=== PATIENT | male | born 1950 | race Two or more races ===

== ENCOUNTER 2024-02-27 20:44 | Emergency (ER) | payer MEDICAID ==
[~2024-02-27] VITALS: Ht 165.1 cm; Wt 74.8 kg
[2024-02-27] MEDS ORDERED: AMOX-430 PO (22:17)
[2024-02-27] MEDS ORDERED: AMOX/CLAVULANATE 875 MG TABLET ONE (22:23)
[2024-02-27] MEDS: AMOX/CLAVULANATE 875 MG TABLET PO ONE (22:27)
[2024-02-27 22:30] VITALS: BP 155/76; TEMP 98.3; O2SAT 99
== END 2024-02-27 22:33 | disposition home or self-care (01) ==
LOC: ER 20:47
DX: K04.7 Periapical abscess without sinus (principal); I10 Essential (primary) hypertension; Z85.46 Personal history of malignant neoplasm of prostate

== ENCOUNTER 2024-03-05 14:52 | Inpatient (IN) | payer MEDICAID ==
[~2024-03-05] VITALS: Ht 188 cm; Wt 78.0 kg
[~2024-03-05 14:52] MED LIST: AMOX-430 PO
[2024-03-05] MEDS ORDERED: CEFTRIAXONE 1GM BAG (ER ONLY) 50 ML IV ONE (15:28)
[2024-03-05] MEDS ORDERED: ACETAMINOPHEN ES 500 MG TABLET ONE (15:28)
[2024-03-05] MEDS ORDERED: AZITHROMYCIN 500 MG VIAL ONE (15:28)
[2024-03-05 15:30] LABS: BASOPHILS % (AUTO) 0.3 % (0.0-2.0); EOSINOPHILS % (AUTO) 0.2 % (0.0-6.0); HEMATOCRIT 23 % (39-51); HEMOGLOBIN 7.8 g/dL (13.5-17.5); LYMPHOCYTES # (AUTO) 0.4 K/uL (0.8-4.8); LYMPHOCYTES % (AUTO) 7.6 % (20.0-44.0); MEAN CORPUSCULAR HEMOGLOBIN 30 PG (26.0-33.0); MEAN CORPUSCULAR HGB CONC 33 g/dl (31.0-36.0); MEAN CORPUSCULAR VOLUME 88 fL (80-96); MONOCYTES # (AUTO) 0.5 K/uL (0.1-1.30); MONOCYTES % (AUTO) 10.2 % (2.0-12.0); NEUTROPHILS # (AUTO) 4.4 K/uL (1.8-8.9); NEUTROPHILS % (AUTO) 81.7 % (43.0-81.0); PLATELET COUNT (AUTO) 167 K/uL (150-450); RED BLOOD CELL COUNT(AUTO) 2.63 MIL/uL (4.5-6.0); RED CELL DISTRIBUTION WIDTH 18.1 % (11.5-15.0); WHITE BLOOD COUNT (AUTO) 5.4 K/uL (4.3-11.0)
[2024-03-05] MEDS: IV NS 0.9% 1,000 ML BAG IV ONE (15:47)
[2024-03-05 15:48] LABS: CALCIUM, SERUM 8.4 mg/dL (8.5-10.1); CARBON DIOXIDE 27 mmol/L (21-32); CHLORIDE 102 mmol/L (98-107); CREATININE 1.6 mg/dL (0.6-1.3); GLUCOSE 107 mg/dL (74-106); POTASSIUM 3.3 mmol/L (3.5-5.1); SODIUM SERUM 136 mmol/L (136-145); UREA NITROGEN, BLOOD 19 mg/dL (7-18)
[2024-03-05] MEDS: CEFTRIAXONE 1GM BAG (ER ONLY) 50 ML IV ONE (15:48)
[2024-03-05] MEDS: AZITHROMYCIN 500 MG in IV D5W 250 ML IV ONE (15:49)
[2024-03-05] MEDS: ACETAMINOPHEN ES 500 MG TABLET PO ONE (15:49)
[2024-03-05 15:53] LABS: ALANINE AMINOTRANSFERASE 19 U/L (12-78); ALKALINE PHOSPHATASE 53 U/L (46-116); ASPARTATE AMINOTRANSFERASE 17 U/L (15-37); BILIRUBIN,DIRECT 0.1 mg/dL (0.0-0.2); BILIRUBIN,TOTAL 0.4 mg/dL (0.2-1.0); PROTHROMBIN TIME 12.6 SECS (9.2-11.1); TOTAL PROTEIN, SERUM 6.4 g/dL (6.4-8.2)
[2024-03-05 15:54] LABS: INR 1.23 (0.91-1.10); PARTIAL THROMBOPLASTIN TIME 34.1 SEC (24.3-34.3)
[2024-03-05 15:56] LABS: LACTIC ACID 1.2 mmol/L (0.4-2.0)
[2024-03-05] MEDS ORDERED: FOLI0.4T6 PO (16:42)
[2024-03-05] MEDS ORDERED: RIVA15TA PO (16:42)
[2024-03-05] MEDS ORDERED: OXYB15TA19 PO (16:42)
[2024-03-05] MEDS ORDERED: IBUP-1957 PO (16:42)
[2024-03-05] MEDS ORDERED: FERR325T24 PO (16:42)
[2024-03-05] MEDS ORDERED: CARV3.122 PO (16:42)
[2024-03-05] MEDS ORDERED: FURO20TA4 PO (16:42)
[2024-03-05] MEDS ORDERED: TAMS-12 PO (16:42)
[2024-03-05 17:18] LABS: APPEARANCE,URINE Clear (CLEAR); BILIRUBIN,URINE Negative (NEGATIVE); BLOOD, URINE Negative Ery/uL (NEGATIVE); COLOR,URINE YELLOW (YELLOW); KETONES,URINE Trace mg/dL (NEGATIVE); LEUKOCYTE ESTERASE ,URINE Negative (NEGATIVE); NITRITE, URINE Negative (NEGATIVE); PH,URINE 5.5 (5.0-8.0); UGLUCOSE Negative (NEGATIVE); UROBILINOGEN,URINE 0.2 EU/dL (0.2)
[2024-03-05 17:20] LABS: PROTEIN,URINE NEGATIVE (NEGATIVE)
[2024-03-05] MEDS ORDERED: ALBUTEROL SULFATE 8 GM HFA.AER.AD IH PRN (18:00)
[2024-03-05] MEDS ORDERED: ACETAMINOPHEN 650 MG/20.3 ML UDC PO PRN (18:00)
[2024-03-05] MEDS ORDERED: IBUPROFEN 400 MG TABLET PO PRN (18:30)
[2024-03-05] MEDS: dexaMETHasone SOD PHOSPHATE 6 MG in IV D5W 50 ML IV SCH (18:38)
[2024-03-05] MEDS ORDERED: HEPARIN SODIUM, PORCINE 5000 UNITS/1 ML VIAL SQ SCH (21:00)
[2024-03-06 08:00] VITALS: BP 149/67; TEMP 98.4; O2SAT 91
[2024-03-06] MEDS: CARVEDILOL 3.125 MG TABLET PO SCH (08:08)
[2024-03-06] MEDS: FOLIC ACID 1 MG TABLET PO SCH (08:57)
[2024-03-06] MEDS: OXYBUTYNIN CHLORIDE ER 5 MG TAB PO SCH (08:57)
[2024-03-06] MEDS: TAMSULOSIN 0.4 MG CAP.SR.24H PO SCH (08:57)
[2024-03-06] MEDS: FERROUS SULFATE (325 MG) 325 MG/TAB TABLET PO SCH (08:58)
[2024-03-06] MEDS: RIVAROXABAN 15 MG TABLET PO SCH (08:59)
[2024-03-06 12:00] VITALS: BP 146/64; TEMP 98.1; O2SAT 94
[2024-03-06 13:44] LABS: CALCIUM, SERUM 8.8 mg/dL (8.5-10.1); CREATININE 1.3 mg/dL (0.6-1.3); POTASSIUM 3.4 mmol/L (3.5-5.1)
[2024-03-06 13:58] LABS: BASOPHILS % (AUTO) 0.1 % (0.0-2.0); HEMATOCRIT 21 % (39-51); HEMOGLOBIN 7.1 g/dL (13.5-17.5); LYMPHOCYTES # (AUTO) 0.6 K/uL (0.8-4.8); LYMPHOCYTES % (AUTO) 16.5 % (20.0-44.0); MEAN CORPUSCULAR HEMOGLOBIN 31 PG (26.0-33.0); MEAN CORPUSCULAR HGB CONC 34 g/dl (31.0-36.0); MEAN CORPUSCULAR VOLUME 89 fL (80-96); MONOCYTES # (AUTO) 0.6 K/uL (0.1-1.30); MONOCYTES % (AUTO) 14.6 % (2.0-12.0); NEUTROPHILS # (AUTO) 2.7 K/uL (1.8-8.9); NEUTROPHILS % (AUTO) 68.8 % (43.0-81.0); PLATELET COUNT (AUTO) 147 K/uL (150-450); RED BLOOD CELL COUNT(AUTO) 2.34 MIL/uL (4.5-6.0); RED CELL DISTRIBUTION WIDTH 18.6 % (11.5-15.0); WHITE BLOOD COUNT (AUTO) 3.9 K/uL (4.3-11.0)
[2024-03-06] MEDS: AZITHROMYCIN 500 MG in IV D5W 250 ML IV SCH (14:32)
[2024-03-06] MEDS: CEFTRIAXONE 1 G in IV D5W 50 ML IV SCH (15:41)
[2024-03-06 16:00] VITALS: BP 128/60; TEMP 98.6; O2SAT 96
[2024-03-06] MEDS: REMDESIVIR (CHARGED) 200 MG, *LOADING DOSE 1 EA in IV NS 0.9% 210 ML IV ONE (18:05)
[2024-03-06 20:00] VITALS: BP 128/61; TEMP 99.1; O2SAT 97
[2024-03-07] VITALS (7 sets, daily range): BP systolic 136–155; BP diastolic 57–71; TEMP 97.7–98.7; O2SAT 93–100
[2024-03-07] MEDS: IV NS 0.9% 250 ML IV PRN (01:25)
[2024-03-07 07:19] LABS: BASOPHILS % (AUTO) 0.4 % (0.0-2.0); EOSINOPHILS % (AUTO) 0.5 % (0.0-6.0); HEMATOCRIT 22 % (39-51); HEMOGLOBIN 7.3 g/dL (13.5-17.5); LYMPHOCYTES # (AUTO) 1.3 K/uL (0.8-4.8); LYMPHOCYTES % (AUTO) 31.2 % (20.0-44.0); MEAN CORPUSCULAR HEMOGLOBIN 30 PG (26.0-33.0); MEAN CORPUSCULAR HGB CONC 33 g/dl (31.0-36.0); MEAN CORPUSCULAR VOLUME 90 fL (80-96); MONOCYTES # (AUTO) 0.4 K/uL (0.1-1.30); MONOCYTES % (AUTO) 10.2 % (2.0-12.0); NEUTROPHILS # (AUTO) 2.4 K/uL (1.8-8.9); NEUTROPHILS % (AUTO) 57.7 % (43.0-81.0); PLATELET COUNT (AUTO) 170 K/uL (150-450); RED BLOOD CELL COUNT(AUTO) 2.46 MIL/uL (4.5-6.0); RED CELL DISTRIBUTION WIDTH 18.4 % (11.5-15.0); WHITE BLOOD COUNT (AUTO) 4.1 K/uL (4.3-11.0)
[2024-03-07 07:45] LABS: CALCIUM, SERUM 8.2 mg/dL (8.5-10.1); CARBON DIOXIDE 25 mmol/L (21-32); CHLORIDE 106 mmol/L (98-107); CREATININE 1.4 mg/dL (0.6-1.3); GLUCOSE 92 mg/dL (74-106); POTASSIUM 3.2 mmol/L (3.5-5.1); SODIUM SERUM 141 mmol/L (136-145); UREA NITROGEN, BLOOD 26 mg/dL (7-18)
[2024-03-07 08:15] LABS: LACTIC ACID 1.2 mmol/L (0.4-2.0)
[2024-03-07] MEDS: POTASSIUM CHLORIDE 20 MEQ TAB.PRT.SR PO SCH (10:52)
[2024-03-07 16:07] LABS: OCCULT BLOOD STOOL POSITIVE (NEGATIVE)
[2024-03-07] MEDS: REMDESIVIR (CHARGED) 100 MG in IV NS 0.9% 230 ML IV SCH (16:22)
[2024-03-08] VITALS: BP 141/62; TEMP 98.6; O2SAT 93
[2024-03-08 04:00] VITALS: BP 138/62; TEMP 98.1; O2SAT 93
[2024-03-08 07:50] LABS: ALBUMIN 2.2 g/dL (3.4-5.0); BILIRUBIN,DIRECT 0.1 mg/dL (0.0-0.2); BILIRUBIN,TOTAL 0.2 mg/dL (0.2-1.0); TOTAL PROTEIN, SERUM 5.2 g/dL (6.4-8.2)
[2024-03-08 08:00] VITALS: BP 135/50; TEMP 98.8; O2SAT 96
[2024-03-08 08:00] LABS: ALBUMIN 2.2 g/dL (3.4-5.0); BILIRUBIN,TOTAL 0.2 mg/dL (0.2-1.0); CREATININE 1.2 mg/dL (0.6-1.3); MAGNESIUM 1.9 mg/dL (1.8-2.4); PHOSPHORUS 2.2 mg/dL (2.5-4.9); POTASSIUM 3.6 mmol/L (3.5-5.1); TOTAL PROTEIN, SERUM 5.2 g/dL (6.4-8.2)
[2024-03-08 08:57] LABS: INR 1.29 (0.91-1.10); PARTIAL THROMBOPLASTIN TIME 39.1 SEC (24.3-34.3); PROTHROMBIN TIME 13.4 SECS (9.2-11.1)
[2024-03-08 12:00] VITALS: BP 139/61; TEMP 98.1; O2SAT 99
[2024-03-08 16:00] VITALS: BP 144/63; TEMP 98.4; O2SAT 97
[2024-03-08] MEDS: AZITHROMYCIN 250 MG TABLET PO SCH (16:23)
[2024-03-08] MEDS: K PHOS NEUTRAL 250 MG TABLET PO ONE (16:23)
[2024-03-08 20:00] VITALS: BP 151/70; TEMP 99.1; O2SAT 97
[2024-03-09] VITALS (9 sets, daily range): BP systolic 137–155; BP diastolic 61–70; TEMP 97.7–98.8; O2SAT 94–99
[2024-03-09 07:01] LABS: CALCIUM, SERUM 7.5 mg/dL (8.5-10.1); CREATININE 1.2 mg/dL (0.6-1.3); MAGNESIUM 1.8 mg/dL (1.8-2.4); PHOSPHORUS 2.7 mg/dL (2.5-4.9); POTASSIUM 3.5 mmol/L (3.5-5.1)
[2024-03-09 07:15] LABS: ALBUMIN 2.2 g/dL (3.4-5.0); BILIRUBIN,TOTAL 0.2 mg/dL (0.2-1.0); INR 1.32 (0.91-1.10); PARTIAL THROMBOPLASTIN TIME 37.3 SEC (24.3-34.3); PROTHROMBIN TIME 13.7 SECS (9.2-11.1); TOTAL PROTEIN, SERUM 5.2 g/dL (6.4-8.2)
[2024-03-09 07:44] LABS: BASOPHILS % (AUTO) 0.6 % (0.0-2.0); EOSINOPHILS # (AUTO) 0.1 K/uL (0.0-0.7); EOSINOPHILS % (AUTO) 2.7 % (0.0-6.0); HEMATOCRIT 21 % (39-51); LYMPHOCYTES # (AUTO) 1.4 K/uL (0.8-4.8); MEAN CORPUSCULAR HEMOGLOBIN 30 PG (26.0-33.0); MEAN CORPUSCULAR HGB CONC 34 g/dl (31.0-36.0); MEAN CORPUSCULAR VOLUME 89 fL (80-96); MONOCYTES # (AUTO) 0.3 K/uL (0.1-1.30); MONOCYTES % (AUTO) 8.7 % (2.0-12.0); NEUTROPHILS # (AUTO) 1.8 K/uL (1.8-8.9); PLATELET COUNT (AUTO) 186 K/uL (150-450); RED BLOOD CELL COUNT(AUTO) 2.31 MIL/uL (4.5-6.0); RED CELL DISTRIBUTION WIDTH 18.7 % (11.5-15.0); WHITE BLOOD COUNT (AUTO) 3.7 K/uL (4.3-11.0)
[2024-03-09 08:09] LABS: HEMOGLOBIN 6.9 g/dL (13.5-17.5)
[2024-03-09 09:10] LABS: PTH, INTACT 68 pg/mL (15-65)
[2024-03-09 14:50] LABS: HEMOGLOBIN 9.4 g/dL (13.5-17.5)
[2024-03-09 18:36] LABS: BAND % (MANUAL) 1 % (0.0-5.0); EOSINOPHILS % (MANUAL) 3 % (0-4); LYMPHOCYTES % (MANUAL) 32 % (16-48); MONOCYTES % (MANUAL) 8 % (0-11.0); NEUTROPHILS % (MANUAL) 56 (42-76); OVALOCYTES 1+; PLATELET ESTIMATE ADEQU; ROULEAUX 1+; TEAR DROP CELLS 1+
[2024-03-09 18:37] LABS: ANISOCYTOSIS 1+
[2024-03-10] VITALS: BP 157/67; TEMP 98.1; O2SAT 96
[2024-03-10 07:52] LABS: BASOPHILS % (AUTO) 0.5 % (0.0-2.0); EOSINOPHILS # (AUTO) 0.1 K/uL (0.0-0.7); EOSINOPHILS % (AUTO) 3.7 % (0.0-6.0); HEMATOCRIT 24 % (39-51); HEMOGLOBIN 8.1 g/dL (13.5-17.5); LYMPHOCYTES # (AUTO) 1.5 K/uL (0.8-4.8); LYMPHOCYTES % (AUTO) 38.8 % (20.0-44.0); MEAN CORPUSCULAR HEMOGLOBIN 30 PG (26.0-33.0); MEAN CORPUSCULAR HGB CONC 34 g/dl (31.0-36.0); MEAN CORPUSCULAR VOLUME 89 fL (80-96); MONOCYTES # (AUTO) 0.4 K/uL (0.1-1.30); MONOCYTES % (AUTO) 10.3 % (2.0-12.0); NEUTROPHILS # (AUTO) 1.8 K/uL (1.8-8.9); NEUTROPHILS % (AUTO) 46.7 % (43.0-81.0); PLATELET COUNT (AUTO) 185 K/uL (150-450); RED BLOOD CELL COUNT(AUTO) 2.68 MIL/uL (4.5-6.0); RED CELL DISTRIBUTION WIDTH 18.1 % (11.5-15.0); WHITE BLOOD COUNT (AUTO) 3.8 K/uL (4.3-11.0)
[2024-03-10 08:00] VITALS: BP 157/73; TEMP 98.8; O2SAT 98
[2024-03-10 08:01] LABS: CALCIUM, SERUM 8.3 mg/dL (8.5-10.1); CARBON DIOXIDE 25 mmol/L (21-32); CHLORIDE 108 mmol/L (98-107); GLUCOSE 93 mg/dL (74-106); POTASSIUM 3.8 mmol/L (3.5-5.1); SODIUM SERUM 139 mmol/L (136-145); UREA NITROGEN, BLOOD 18 mg/dL (7-18)
[2024-03-10 08:02] LABS: INR 1.31 (0.91-1.10); PROTHROMBIN TIME 13.6 SECS (9.2-11.1)
[2024-03-10 08:18] LABS: ALBUMIN 2.3 g/dL (3.4-5.0); BILIRUBIN,DIRECT 0.1 mg/dL (0.0-0.2); BILIRUBIN,TOTAL 0.3 mg/dL (0.2-1.0); TOTAL PROTEIN, SERUM 5.3 g/dL (6.4-8.2)
[2024-03-10 16:00] VITALS: BP 163/80; TEMP 98.8; O2SAT 100
[2024-03-11] VITALS: BP 149/80; TEMP 98.5; O2SAT 100
[2024-03-11 04:09] LABS: *SPE A/G RATIO 1.3 (0.7-1.7); *SPE ALBUMIN 2.5 g/dL (2.9-4.4); *SPE ALPHA-1-GLOBULIN 0.2 g/dL (0.0-0.4); *SPE ALPHA-2-GLOBULIN 0.6 g/dL (0.4-1.0); *SPE BETA GLOBULIN 0.7 g/dL (0.7-1.3); *SPE M-SPIKE Not Observed g/dL (Not Observed); *SPE PROTEIN TOTAL 4.5 g/dL (6.0-8.5); *SPEGAMMA GLOBULIN 0.5 g/dL (0.4-1.8)
[2024-03-11 07:22] LABS: BASOPHILS % (AUTO) 0.5 % (0.0-2.0); EOSINOPHILS # (AUTO) 0.2 K/uL (0.0-0.7); EOSINOPHILS % (AUTO) 3.7 % (0.0-6.0); HEMATOCRIT 24 % (39-51); HEMOGLOBIN 8.7 g/dL (13.5-17.5); LYMPHOCYTES # (AUTO) 1.4 K/uL (0.8-4.8); LYMPHOCYTES % (AUTO) 34.5 % (20.0-44.0); MEAN CORPUSCULAR HEMOGLOBIN 32 PG (26.0-33.0); MEAN CORPUSCULAR HGB CONC 36 g/dl (31.0-36.0); MEAN CORPUSCULAR VOLUME 88 fL (80-96); MONOCYTES # (AUTO) 0.5 K/uL (0.1-1.30); MONOCYTES % (AUTO) 11.9 % (2.0-12.0); NEUTROPHILS # (AUTO) 2.1 K/uL (1.8-8.9); NEUTROPHILS % (AUTO) 49.4 % (43.0-81.0); PLATELET COUNT (AUTO) 200 K/uL (150-450); RED BLOOD CELL COUNT(AUTO) 2.77 MIL/uL (4.5-6.0); RED CELL DISTRIBUTION WIDTH 17.9 % (11.5-15.0); WHITE BLOOD COUNT (AUTO) 4.2 K/uL (4.3-11.0)
[2024-03-11 07:46] LABS: INR 1.33 (0.91-1.10); PARTIAL THROMBOPLASTIN TIME 32.9 SEC (24.3-34.3); PROTHROMBIN TIME 13.8 SECS (9.2-11.1)
[2024-03-11 08:00] VITALS: BP 152/70; TEMP 97.7; O2SAT 98
[2024-03-11 08:11] LABS: ALANINE AMINOTRANSFERASE 20 U/L (12-78); ALBUMIN 2.4 g/dL (3.4-5.0); ALKALINE PHOSPHATASE 55 U/L (46-116); ASPARTATE AMINOTRANSFERASE 17 U/L (15-37); BILIRUBIN,DIRECT 0.1 mg/dL (0.0-0.2); BILIRUBIN,TOTAL 0.3 mg/dL (0.2-1.0); CALCIUM, SERUM 8.3 mg/dL (8.5-10.1); CARBON DIOXIDE 23 mmol/L (21-32); CHLORIDE 107 mmol/L (98-107); CREATININE 1.1 mg/dL (0.6-1.3); GLUCOSE 88 mg/dL (74-106); POTASSIUM 3.8 mmol/L (3.5-5.1); SODIUM SERUM 138 mmol/L (136-145); TOTAL PROTEIN, SERUM 5.5 g/dL (6.4-8.2); UREA NITROGEN, BLOOD 17 mg/dL (7-18)
[2024-03-11] MEDS: PANTOPRAZOLE 40 MG VIAL IV SCH (11:38)
[2024-03-11 16:00] VITALS: BP 168/75; TEMP 97.5; O2SAT 98
[2024-03-11 20:00] VITALS: BP 146/77; TEMP 97.7; O2SAT 99
[2024-03-12 05:20] VITALS: BP 154/81; TEMP 98.5; O2SAT 98
[2024-03-12 07:22] LABS: BASOPHILS % (AUTO) 0.9 % (0.0-2.0); EOSINOPHILS # (AUTO) 0.2 K/uL (0.0-0.7); EOSINOPHILS % (AUTO) 4.1 % (0.0-6.0); HEMATOCRIT 30 % (39-51); HEMOGLOBIN 9.9 g/dL (13.5-17.5); LYMPHOCYTES # (AUTO) 1.6 K/uL (0.8-4.8); LYMPHOCYTES % (AUTO) 33.2 % (20.0-44.0); MEAN CORPUSCULAR HEMOGLOBIN 30 PG (26.0-33.0); MEAN CORPUSCULAR HGB CONC 34 g/dl (31.0-36.0); MEAN CORPUSCULAR VOLUME 90 fL (80-96); MONOCYTES # (AUTO) 0.6 K/uL (0.1-1.30); MONOCYTES % (AUTO) 11.9 % (2.0-12.0); NEUTROPHILS # (AUTO) 2.4 K/uL (1.8-8.9); NEUTROPHILS % (AUTO) 49.9 % (43.0-81.0); PLATELET COUNT (AUTO) 238 K/uL (150-450); RED BLOOD CELL COUNT(AUTO) 3.28 MIL/uL (4.5-6.0); RED CELL DISTRIBUTION WIDTH 18.1 % (11.5-15.0); WHITE BLOOD COUNT (AUTO) 4.7 K/uL (4.3-11.0)
[2024-03-12 07:44] LABS: CALCIUM, SERUM 8.6 mg/dL (8.5-10.1); CREATININE 1.1 mg/dL (0.6-1.3)
[2024-03-12 08:00] VITALS: BP 144/67; TEMP 97.7; O2SAT 98
[2024-03-12] MEDS ORDERED: PANT40TA2 PO (11:17)
[2024-03-12 16:00] VITALS: BP 135/67; TEMP 98.1; O2SAT 98
== END 2024-03-12 16:40 | disposition home or self-care (01) | DRG 137 ==
LOC: ER 15:18 → MEDSG1 17:56 → TELE1 18:13 → MEDSG1 03-08 12:56
PROVIDERS: ADMIT Nurse Practitioner Acute Care; ATTEND Nurse Practitioner Acute Care
PROC: XW033E5 Introduction of Remdesivir Anti-infective into Peripheral Vein, Percutaneous Approach, New Technology Group 5 (ICD-10-PCS; principal; 2024-03-06)
PROC: 30233N1 Transfusion of Nonautologous Red Blood Cells into Peripheral Vein, Percutaneous Approach (ICD-10-PCS; 2024-03-09)
DX: U07.1 COVID-19 (principal); N17.0 Acute kidney failure with tubular necrosis; J12.82 Pneumonia due to coronavirus disease 2019; I11.0 Hypertensive heart disease with heart failure; K29.71 Gastritis, unspecified, with bleeding; J15.9 Unspecified bacterial pneumonia; I50.32 Chronic diastolic (congestive) heart failure; E87.6 Hypokalemia; R79.82 Elevated C-reactive protein (CRP); Z86.711 Personal history of pulmonary embolism; E78.5 Hyperlipidemia, unspecified; Z85.46 Personal history of malignant neoplasm of prostate; N32.81 Overactive bladder; Z79.01 Long term (current) use of anticoagulants; M89.8X9 Other specified disorders of bone, unspecified site; Z85.71 Personal history of Hodgkin lymphoma; D50.0 Iron deficiency anemia secondary to blood loss (chronic); K04.7 Periapical abscess without sinus
CPT/HCPCS: 36415; 71045-TC; 80048-TC; 80053-TC; 80076-TC; 82272-TC; 82550-TC; 82728-TC; 83605-TC; 83735-TC; 83970; 84100-TC; 84155; 84165; 84484-TC; 85025-TC; 85027-TC; 85378-TC; 85610-TC; 85730-TC; 86140-TC; 86850-TC; 87040-TC; 87081-TC; 87086-TC; 93307-TC; 93970-TC; A4216; A4223; G0378; J0456; J0696; J1100; J2048; J2470; J7050; J7060; P9016

== ENCOUNTER 2024-06-25 14:53 | Inpatient (IN) | payer MEDICAID ==
[~2024-06-25] VITALS: Ht 165.1 cm; Wt 68.9 kg
[~2024-06-25 14:53] MED LIST changes: -AMOX-430 PO; +CARV3.122 PO; +FERR325T24 PO; +FOLI0.4T6 PO; +FURO20TA4 PO; +OXYB15TA19 PO; +PANT40TA2 PO; +TAMS-12 PO
[2024-06-25 15:44] LABS: BASOPHILS % (AUTO) 0.3 % (0.0-2.0); EOSINOPHILS % (AUTO) 0.5 % (0.0-6.0); HEMATOCRIT 30 % (39-51); LYMPHOCYTES # (AUTO) 0.7 K/uL (0.8-4.8); LYMPHOCYTES % (AUTO) 9.5 % (20.0-44.0); MEAN CORPUSCULAR HEMOGLOBIN 29 PG (26.0-33.0); MEAN CORPUSCULAR HGB CONC 33 g/dl (31.0-36.0); MEAN CORPUSCULAR VOLUME 86 fL (80-96); MONOCYTES # (AUTO) 0.8 K/uL (0.1-1.30); MONOCYTES % (AUTO) 11.4 % (2.0-12.0); NEUTROPHILS # (AUTO) 5.8 K/uL (1.8-8.9); NEUTROPHILS % (AUTO) 78.3 % (43.0-81.0); PLATELET COUNT (AUTO) 149 K/uL (150-450); RED BLOOD CELL COUNT(AUTO) 3.49 MIL/uL (4.5-6.0); WHITE BLOOD COUNT (AUTO) 7.5 K/uL (4.3-11.0)
[2024-06-25] MEDS: IV NS 0.9% 500 ML BAG IV ONE (15:49)
[2024-06-25 15:56] LABS: ALANINE AMINOTRANSFERASE 18 U/L (12-78); ALBUMIN 3.3 g/dL (3.4-5.0); ALKALINE PHOSPHATASE 63 U/L (46-116); ASPARTATE AMINOTRANSFERASE 14 U/L (15-37); BILIRUBIN,DIRECT 0.2 mg/dL (0.0-0.2); BILIRUBIN,TOTAL 0.8 mg/dL (0.2-1.0); CALCIUM, SERUM 8.6 mg/dL (8.5-10.1); CARBON DIOXIDE 26 mmol/L (21-32); CHLORIDE 108 mmol/L (98-107); CREATININE 1.3 mg/dL (0.6-1.3); GLUCOSE 103 mg/dL (74-106); SODIUM SERUM 142 mmol/L (136-145); TOTAL PROTEIN, SERUM 6.8 g/dL (6.4-8.2); UREA NITROGEN, BLOOD 24 mg/dL (7-18)
[2024-06-25 15:59] LABS: LACTIC ACID 1.4 mmol/L (0.4-2.0)
[2024-06-25 16:04] LABS: INR 1.19 (0.91-1.10); PARTIAL THROMBOPLASTIN TIME 32.2 SEC (24.3-34.3); PROTHROMBIN TIME 12.5 SECS (9.2-11.1)
[2024-06-25] MEDS ORDERED: ASPIRIN 325 MG TABLET ONE (16:59)
[2024-06-25] MEDS: ASPIRIN EC 325 MG TABLET.DR PO ONE (17:03)
[2024-06-25] MEDS ORDERED: ONDANSETRON HCL/PF 4 MG/2 ML VIAL IVP PRN (17:30)
[2024-06-25] MEDS ORDERED: ZOLPIDEM TARTRATE 5 MG TABLET PO PRN (17:30)
[2024-06-25] MEDS ORDERED: MAGNESIUM HYDROXIDE 30 ML UDC PO PRN (17:30)
[2024-06-25] MEDS ORDERED: MAG HYDROX/AL HYDROX/SIMETH 30 ML UDC PO PRN (17:30)
[2024-06-25] MEDS ORDERED: Z GUARD REMEDY 4 OZ OINT TP PRN (17:30)
[2024-06-25 20:00] VITALS: BP 140/74; TEMP 97; O2SAT 97
[2024-06-25 20:10] VITALS: BP 140/74; TEMP 99.1; O2SAT 97
[2024-06-25] MEDS: CEFTRIAXONE 1 G in IV D5W 50 ML IV SCH (20:36)
[2024-06-25] MEDS: AZITHROMYCIN 500 MG in IV D5W 250 ML IV SCH (21:19)
[2024-06-25] MEDS: GUAIFENESIN/D-METHORPHAN HB 5 ML UDC PO PRN (22:16)
[2024-06-26] VITALS: BP 164/90; TEMP 100.6; O2SAT 94
[2024-06-26] MEDS: ACETAMINOPHEN 325 MG TABLET PO PRN (00:41)
[2024-06-26] MEDS: ENOXAPARIN SODIUM 40 MG/0.4 ML DISP.SYRIN SQ SCH (01:48)
[2024-06-26] MEDS: CLONIDINE HCL 0.1 MG TABLET PO PRN (02:01)
[2024-06-26 04:00] VITALS: BP 119/52; TEMP 97.7; O2SAT 95
[2024-06-26 06:26] LABS: BASOPHILS % (AUTO) 0.2 % (0.0-2.0); EOSINOPHILS % (AUTO) 0.2 % (0.0-6.0); HEMATOCRIT 26 % (39-51); HEMOGLOBIN 8.9 g/dL (13.5-17.5); LYMPHOCYTES # (AUTO) 0.4 K/uL (0.8-4.8); LYMPHOCYTES % (AUTO) 5.2 % (20.0-44.0); MEAN CORPUSCULAR HEMOGLOBIN 29 PG (26.0-33.0); MEAN CORPUSCULAR HGB CONC 34 g/dl (31.0-36.0); MEAN CORPUSCULAR VOLUME 87 fL (80-96); MONOCYTES # (AUTO) 0.7 K/uL (0.1-1.30); MONOCYTES % (AUTO) 9.5 % (2.0-12.0); NEUTROPHILS # (AUTO) 6.3 K/uL (1.8-8.9); NEUTROPHILS % (AUTO) 84.9 % (43.0-81.0); PLATELET COUNT (AUTO) 131 K/uL (150-450); RED BLOOD CELL COUNT(AUTO) 3.02 MIL/uL (4.5-6.0); RED CELL DISTRIBUTION WIDTH 17.3 % (11.5-15.0); WHITE BLOOD COUNT (AUTO) 7.4 K/uL (4.3-11.0)
[2024-06-26 07:55] LABS: CALCIUM, SERUM 8.4 mg/dL (8.5-10.1); CARBON DIOXIDE 23 mmol/L (21-32); CHLORIDE 107 mmol/L (98-107); CREATININE 1.1 mg/dL (0.6-1.3); GLUCOSE 117 mg/dL (74-106); MAGNESIUM 1.9 mg/dL (1.8-2.4); PHOSPHORUS 1.6 mg/dL (2.5-4.9); POTASSIUM 3.2 mmol/L (3.5-5.1); SODIUM SERUM 139 mmol/L (136-145); UREA NITROGEN, BLOOD 28 mg/dL (7-18)
[2024-06-26 08:00] VITALS: BP 128/67; TEMP 98.2; O2SAT 94
[2024-06-26] MEDS ORDERED: CHOL400T28 PO (08:12)
[2024-06-26] MEDS ORDERED: ASCO100T12 PO (08:12)
[2024-06-26] MEDS ORDERED: CYAN100T9 PO (08:12)
[2024-06-26] MEDS: ASPIRIN 81 MG TAB.CHEW PO SCH (08:48)
[2024-06-26] MEDS: OXYBUTYNIN CHLORIDE ER 5 MG TAB PO SCH (08:48)
[2024-06-26] MEDS: TAMSULOSIN 0.4 MG CAP.SR.24H PO SCH (08:48)
[2024-06-26] MEDS: POTASSIUM CHLORIDE 20 MEQ TAB.PRT.SR PO ONE (08:48)
[2024-06-26] MEDS: PANTOPRAZOLE 40 MG TABLET.DR PO SCH (08:48)
[2024-06-26] MEDS: FUROSEMIDE 20 MG TABLET PO SCH (08:48)
[2024-06-26] MEDS: FOLIC ACID 1 MG TABLET PO SCH (08:48)
[2024-06-26] MEDS: CARVEDILOL 3.125 MG TABLET PO SCH (08:48)
[2024-06-26] MEDS: FERROUS SULFATE (325 MG) 325 MG/TAB TABLET PO SCH (08:48)
[2024-06-26 09:52] LABS: ALBUMIN 2.8 g/dL (3.4-5.0); BILIRUBIN,DIRECT 0.2 mg/dL (0.0-0.2); BILIRUBIN,TOTAL 0.6 mg/dL (0.2-1.0); TOTAL PROTEIN, SERUM 5.8 g/dL (6.4-8.2)
[2024-06-26 10:01] LABS: FREE PSA 0.07 ng/mL (0.00-45); PROSTATE SPECIFIC ANTIGEN SCR 0.2 ng/mL (0.00-4.00)
[2024-06-26] MEDS: POTASSIUM CHLORIDE 20 MEQ TAB.PRT.SR PO SCH (10:10)
[2024-06-26] MEDS: NEUTRA PHOS 1 POWD.PACKET PO SCH (10:10)
[2024-06-26 10:25] LABS: THYROID STIMULATING HORMONE 0.83 uIU/mL (0.358-3.74)
[2024-06-26 12:00] VITALS: BP 110/59; TEMP 98.2; O2SAT 92
[2024-06-26 13:32] LABS: BASOPHILS % (AUTO) 0.2 % (0.0-2.0); EOSINOPHILS # (AUTO) 0.1 K/uL (0.0-0.7); EOSINOPHILS % (AUTO) 1.3 % (0.0-6.0); HEMATOCRIT 27 % (39-51); HEMOGLOBIN 9.1 g/dL (13.5-17.5); LYMPHOCYTES # (AUTO) 0.5 K/uL (0.8-4.8); LYMPHOCYTES % (AUTO) 6.9 % (20.0-44.0); MEAN CORPUSCULAR HEMOGLOBIN 29 PG (26.0-33.0); MEAN CORPUSCULAR HGB CONC 33 g/dl (31.0-36.0); MEAN CORPUSCULAR VOLUME 86 fL (80-96); MONOCYTES # (AUTO) 0.6 K/uL (0.1-1.30); MONOCYTES % (AUTO) 8.6 % (2.0-12.0); NEUTROPHILS # (AUTO) 5.5 K/uL (1.8-8.9); PLATELET COUNT (AUTO) 120 K/uL (150-450); RED BLOOD CELL COUNT(AUTO) 3.17 MIL/uL (4.5-6.0); RED CELL DISTRIBUTION WIDTH 17.3 % (11.5-15.0); WHITE BLOOD COUNT (AUTO) 6.6 K/uL (4.3-11.0)
[2024-06-26] MEDS: LOPERAMIDE HCL (2 MG CAP) 2 MG CAPSULE PO PRN (15:02)
[2024-06-26 16:00] VITALS: BP 112/62; TEMP 98; O2SAT 96
[2024-06-26 20:00] VITALS: BP 108/67; TEMP 98.9; O2SAT 96
[2024-06-26] MEDS: ENOXAPARIN SODIUM 60 MG/0.6 ML DISP.SYRIN SQ SCH (20:15)
[2024-06-27 02:39] VITALS: BP 130/74; TEMP 98.1; O2SAT 94
[2024-06-27 04:51] VITALS: BP 149/79; TEMP 98.5; O2SAT 94
[2024-06-27 06:29] LABS: BASOPHILS % (AUTO) 0.5 % (0.0-2.0); EOSINOPHILS # (AUTO) 0.2 K/uL (0.0-0.7); EOSINOPHILS % (AUTO) 4.6 % (0.0-6.0); HEMATOCRIT 28 % (39-51); HEMOGLOBIN 9.5 g/dL (13.5-17.5); LYMPHOCYTES # (AUTO) 0.5 K/uL (0.8-4.8); LYMPHOCYTES % (AUTO) 9.9 % (20.0-44.0); MEAN CORPUSCULAR HEMOGLOBIN 29 PG (26.0-33.0); MEAN CORPUSCULAR HGB CONC 33 g/dl (31.0-36.0); MEAN CORPUSCULAR VOLUME 87 fL (80-96); MONOCYTES # (AUTO) 0.6 K/uL (0.1-1.30); MONOCYTES % (AUTO) 10.7 % (2.0-12.0); NEUTROPHILS % (AUTO) 74.3 % (43.0-81.0); PLATELET COUNT (AUTO) 132 K/uL (150-450); RED BLOOD CELL COUNT(AUTO) 3.26 MIL/uL (4.5-6.0); RED CELL DISTRIBUTION WIDTH 17.3 % (11.5-15.0); WHITE BLOOD COUNT (AUTO) 5.4 K/uL (4.3-11.0)
[2024-06-27 06:49] LABS: ALANINE AMINOTRANSFERASE 16 U/L (12-78); ALKALINE PHOSPHATASE 57 U/L (46-116); ASPARTATE AMINOTRANSFERASE 17 U/L (15-37); BILIRUBIN,TOTAL 0.5 mg/dL (0.2-1.0); CALCIUM, SERUM 8.2 mg/dL (8.5-10.1); CARBON DIOXIDE 24 mmol/L (21-32); CHLORIDE 109 mmol/L (98-107); CREATININE 1.3 mg/dL (0.6-1.3); GLUCOSE 106 mg/dL (74-106); MAGNESIUM 2.1 mg/dL (1.8-2.4); PHOSPHORUS 1.5 mg/dL (2.5-4.9); POTASSIUM 4.3 mmol/L (3.5-5.1); SODIUM SERUM 141 mmol/L (136-145); TOTAL PROTEIN, SERUM 6.2 g/dL (6.4-8.2); UREA NITROGEN, BLOOD 30 mg/dL (7-18)
[2024-06-27 08:00] VITALS: BP 160/98; TEMP 99.3; O2SAT 92
[2024-06-27] MEDS: ENOXAPARIN SODIUM 40 MG/0.4 ML DISP.SYRIN SQ SCH (08:25)
[2024-06-27] MEDS: NEUTRA PHOS 1 POWD.PACKET PO SCH (09:07)
[2024-06-27] MEDS ORDERED: BENZONATATE 100 MG CAPSULE PO PRN (09:30)
[2024-06-27 12:00] VITALS: BP 138/72; TEMP 98.6; O2SAT 96
[2024-06-27] MEDS ORDERED: AZITHROMYCIN 250 MG TABLET PO SCH (18:00)
== END 2024-06-27 16:42 | disposition left against medical advice (07) | DRG 139 ==
LOC: ER 15:01 → TELE1 17:59
PROVIDERS: ADMIT Internal Medicine; ATTEND Internal Medicine
DX: J15.9 Unspecified bacterial pneumonia (principal); I21.A1 Myocardial infarction type 2; D63.8 Anemia in other chronic diseases classified elsewhere; I50.9 Heart failure, unspecified; I11.0 Hypertensive heart disease with heart failure; E83.39 Other disorders of phosphorus metabolism; Z85.038 Personal history of other malignant neoplasm of large intestine; Z85.46 Personal history of malignant neoplasm of prostate; E78.5 Hyperlipidemia, unspecified; Z87.01 Personal history of pneumonia (recurrent); Z86.16 Personal history of COVID-19; Z86.711 Personal history of pulmonary embolism; Z20.822 Contact with and (suspected) exposure to COVID-19; E87.6 Hypokalemia; J40 Bronchitis, not specified as acute or chronic; N40.0 Benign prostatic hyperplasia without lower urinary tract symptoms
CPT/HCPCS: 36415; 71045-TC; 71250-TC; 80048-TC; 80053-TC; 80061-TC; 80076-TC; 82378; 82728-TC; 83540-TC; 83605-TC; 83735-TC; 84100-TC; 84153-TC; 84154-TC; 84439-TC; 84443-TC; 84484-TC; 85025-TC; 85730-TC; 87040-TC; 93307-TC; 93970-TC; A4223; G0378; J0456; J0696; J1650; J7040; J7060